=== PATIENT | female | born 2000 | race Caucasian/White ===

== ENCOUNTER 2021-05-17 10:52 | Emergency (ER) | payer MEDICAID ==
[~2021-05-17] VITALS: Ht 157.5 cm; Wt 64.9 kg
[2021-05-17 11:11] VITALS: BP 124/77
[2021-05-17 11:29] LABS: URINE HCG NEGATIVE (NEG)
[2021-05-17 11:30] LABS: CLARITY,URINE CLEAR (Clear); GLUCOSE, URINE NEGATIVE (Neg); KETONES,URINE NEGATIVE (Neg); LEUKOCYTE ESTERASE ,URINE TRACE (Neg); NITRITES, URINE NEGATIVE (Neg); OCCULT BLOOD,URINE MODERATE (Neg); PROTEIN,URINE NEGATIVE (Neg); UROBILINOGEN,URINE 0.2 E.U/dL (0.2-1.0)
[2021-05-17 11:38] LABS: COLOR,URINE STRAW (Yellow); UA COLLECTION TYPE CLN CATCH MIDSTREAM
[2021-05-17 11:39] LABS: BACTERIA,URINE FEW /HPF (Neg); RBC,URINE 0-2 /HPF (0-2); SQUAMOUS EPITHELIAL CELL,UR FEW /LPF (FEW)
[2021-05-17] MEDS ORDERED: CEPH250T PO (11:40)
[2021-05-17] MEDS ORDERED: azithromycin 250mg tablet PO ONE (11:55)
[2021-05-17] MEDS ORDERED: CefTRIAXone 1000mg IM Kit (w/lidocaine diluent) IM ONE (11:55)
== END 2021-05-17 12:21 | disposition home or self-care (01) ==
LOC: ER 10:54
DX: N39.0 Urinary tract infection, site not specified (principal); R30.0 Dysuria; R51.9 Headache, unspecified; R10.84 Generalized abdominal pain; Z79.2 Long term (current) use of antibiotics
CPT/HCPCS: 81001; 81025; 87088; 96372; 99283; J0696

== ENCOUNTER 2021-06-12 19:16 | Emergency (ER) | payer MEDICAID ==
[~2021-06-12] VITALS: Ht 157.5 cm; Wt 68.2 kg
[2021-06-12 19:21] VITALS: BP 127/74
--- NOTE | 2021-06-12 23:07 | NUR ---
pt left due to wait times
== END 2021-06-12 23:08 | disposition left against medical advice (07) ==
LOC: ER 19:16
DX: M79.621 Pain in right upper arm (principal); Z53.21 Procedure and treatment not carried out due to patient leaving prior to being seen by health care provider